=== PATIENT | male | born 1990 | race American Indian/Alaskan Native ===

== ENCOUNTER → 2017-10-23 14:33 | Emergency (ER) | payer SELFPAY | END | disposition left against medical advice (07) | LOC: ED 14:33 | DX: T63.461A Toxic effect of venom of wasps, accidental (unintentional), initial encounter (principal); Y92.89 Other specified places as the place of occurrence of the external cause; Z53.21 Procedure and treatment not carried out due to patient leaving prior to being seen by health care provider ==

== ENCOUNTER 2019-05-10 10:06 | Emergency (ER) | payer OTHER ==
[2019-05-10 10:14] VITALS: BP 126/80
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
== END 2019-05-10 13:01 | disposition home or self-care (01) ==
LOC: ED 10:06
DX: S39.92XA Unspecified injury of lower back, initial encounter (principal); M25.511 Pain in right shoulder; F17.200 Nicotine dependence, unspecified, uncomplicated; V49.59XA Passenger injured in collision with other motor vehicles in traffic accident, initial encounter; Y93.89 Activity, other specified; Y92.410 Unspecified street and highway as the place of occurrence of the external cause; Y99.8 Other external cause status